=== PATIENT | female | born 1990 | race African-American/Black ===

== ENCOUNTER 2017-02-04 03:43 | Emergency (ER) | payer SELFPAY ==
[2017-02-04] MEDS ORDERED: HYDROCODONE/ACETAMINOPHEN 5-325 MG 6 TAB/DSPK PO PRN (05:30)
[2017-02-04] MEDS ORDERED: ONDANSETRON 4 MG TAB.RAPDIS PO ONE ×2 (05:30→07:06)
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
[2017-02-04] MEDS ORDERED: ACETAMINOPHEN 325 MG TABLET PO ONE (07:13)
[2017-02-04 09:42] VITALS: BP 124/78
== END 2017-02-04 09:40 | disposition home or self-care (01) ==
LOC: ER 03:43
DX: S16.1XXA Strain of muscle, fascia and tendon at neck level, initial encounter (principal); V03.00XA Pedestrian on foot injured in collision with car, pick-up truck or van in nontraffic accident, initial encounter; Y92.488 Other paved roadways as the place of occurrence of the external cause; R51 Headache; M54.2 Cervicalgia; R11.10 Vomiting, unspecified; R03.0 Elevated blood-pressure reading, without diagnosis of hypertension
CPT/HCPCS: 99284; 72050; 70450; L0120; S0119

== ENCOUNTER 2017-04-20 17:24 | Emergency (ER) | payer BC ==
[2017-04-20 17:30] VITALS: BP 119/73
[2017-04-20] MEDS ORDERED: EPINEPHRINE INJ/PF 1 MG/1 ML AMPULE IM ONE (18:33)
--- NOTE | 2017-04-20 18:39 | ER Document Report ---
ED Allergic Reaction - General Chief Complaint: Lip Swelling Stated Complaint: LIP SWELLING Time Seen by Provider: 04/20/17 18:33 Notes: Patient was at work yesterday when she began to develop hives all over her body and her lips began to swell. She took 50 mg of Benadryl at home last night. Her symptoms continued today and she went to a urgent care where she received an injection of Solu-Medrol 125 mg IM and Benadryl 50 mg IM. She was then referred here for further evaluation and care. She says that she is now doing better and the swelling in her hips have started to go down at her itching is reduced. Patient has never had any problems with allergic reactions previously. Knows of nothing in her environment or diet that should be causing her to have an allergic reaction. No new foods. No new medications. Patient does take Latuda and sertraline for depression and propranolol for anxiety, but she has been on these medications for a considerable time without any problems. Her only known allergy is to Septra. Patient has no problems swallowing. Has no problem with her airway. TRAVEL OUTSIDE OF THE [place] IN LAST 30 DAYS: No - Related Data Allergies/Adverse Reactions: sulfamethoxazole [From Septra] Adverse Reaction (Verified 04/20/17 17:29) trimethoprim [From Septra] Adverse Reaction (Verified 04/20/17 17:29) Past Medical History - Social History Smoking Status: Unknown if Ever Smoked Family History: None, Reviewed & Not Pertinent Patient has suicidal ideation: No Patient has homicidal ideation: No Pulmonary Medical History: Denies: Hx Asthma Psychiatric Medical History: Reports: Hx Anxiety, Hx Bipolar Disorder, Hx Depression, Hx Post Traumatic Stress Disorder - Immunizations Immunizations up to date: Yes Hx Diphtheria, Pertussis, Tetanus Vaccination: Yes Review of Systems - Review of Systems Notes: REVIEW OF SYSTEMS: CONSTITUTIONAL : Denies fever. EENT: Denies eye, ear, nose or mouth or throat pain or other symptoms. No difficulty breathing or swallowing. CARDIOVASCULAR: Denies chest pain. RESPIRATORY: Denies cough, chest congestion, or shortness of breath. No wheezes. GASTROINTESTINAL: Denies abdominal pain or nausea, vomiting, or diarrhea. GENITOURINARY: Denies difficulty or painful urinating, urinary frequency, blood in urine. MUSCULOSKELETAL: Denies back or neck pain. Denies joint pain or swelling. SKIN: Has a diffuse hives throughout most of her torso. NEUROLOGICAL: Denies LOC or altered mental status. Denies headache. Denies sensory loss or motor deficits. ALL OTHER SYSTEMS REVIEWED AND NEGATIVE. Physical Exam - Vital signs Vitals: Temp Pulse Resp BP Pulse Ox 98.5 F 59 L 20 119/73 98 04/20/17 17:29 04/20/17 17:29 04/20/17 17:29 04/20/17 17:29 04/20/17 17:29 Interpretation: Normal - Notes Notes: PHYSICAL EXAMINATION: GENERAL: Well-appearing, in no acute distress. HEAD: Atraumatic, normocephalic. EYES: Pupils equal round and reactive to light, extraocular movements intact. No excessive tearing and no swelling of either of the eyes. ENT: oropharynx clear without exudates. Moist mucous membranes. Slight swelling of the lower lip. NECK: Normal range of motion, supple. LUNGS: Breath sounds clear and equal bilaterally. Wheezes heard. HEART: Regular rate and rhythm without murmurs. ABDOMEN: Soft, nontender. No guarding or rebound. BACK: No tenderness throughout entire back. EXTREMITIES: Normal range of motion without pain. NEUROLOGICAL: Normal speech, normal gait. Normal sensory, motor, and reflex exams. Awake, alert, and oriented x3. Cranial nerves normal. PSYCH: Normal mood, normal affect. SKIN: Warm, dry. Diffuse hives over the patient's chest and abdomen and back especially. Course - Re-evaluation Re-evalutation: 04/21/17 01:06 Patient's symptoms are already beginning to improve. I think she is safe to go home. I am providing her with 5 days of 60 mg a day of prednisone and she is going to take as needed Benadryl at home. - Vital Signs Vital signs: Temp Pulse Resp BP Pulse Ox 98.5 F 59 L 20 119/73 98 04/20/17 17:29 04/20/17 17:29 04/20/17 17:29 04/20/17 17:29 04/20/17 17:29 Discharge - Discharge Clinical Impression: Allergic reaction Qualifiers: Encounter type: initial encounter Qualified Code(s): T78.40XA - Allergy, unspecified, initial encounter Condition: Stable Disposition: HOME, SELF-CARE Additional Instructions: ACUTE ALLERGIC REACTION: Your symptoms are due to an allergic reaction. Allergy can cause hives, swelling of the hands, feet, and face, hoarseness, and difficulty swallowing or breathing. It may be due to exposure to medication, animal dander, foods, infection, or insect bites. Medication is a common cause, even when prior use of this same medication caused no problems. Acute treatment may include adrenalin and antihistamines. Usually, the specific allergic agent can't be identified unless repeated episodes occur. Home treatment includes the following: (1) Stop any suspicious medications. This will be discussed with you. (2) Oral antihistamines for the next four to five days. Example, diphenhydramine (Benadryl) every four hours. (3) You may also use cimetidine (Tagamet), ranitidine (Zantac), or famotidine ( Pepcid) every four hours if diphenhydramine is not controlling itching and hives. (4) Avoid aspirin until the hives completely disappear. (5) Avoid hot baths or showers until the hives are completely gone. Call the doctor if faintness, difficulty swallowing, tightness in the chest , or wheezing occurs. EPINEPHRINE: An injection of epinephrine (also called adrenalin) is used to treat allergic reactions, asthma, and some other medical conditions. It is a stimulant medication that consticts blood vessels, relaxes smooth muscles such as in the bronchioles of the lung, elevates blood pressure, and increases heart rate. It can temporarily make you feel very nervous and shakey, but it's affects last only a short time, about 15 to 30 minutes at most. STEROID MEDICATION INJECTION: At the urgent care, you were given an injection of medicine of the cortisone/steroid class. This medication is used to control inflammation or allergy. It is often continued as a pill for a short period of time, until the acute process subsides. There are usually no side effects from short-term use of cortisone-like medications. Some persons feel an increased sense of well-being and are not sleepy at bedtime. Long-term use of cortisone medications is best avoided, unless required for a severe condition. If your condition does not remit, or relapses after the course of corticosteroid medication, you should consult your physician. STEROID MEDICATION: You have been given a medicine of the cortisone/steroid class. This medication is used to control inflammation or allergy. It is usually only given for a short period of time, until the acute process subsides. There are usually no side effects from short-term use of cortisone-like medications. Some persons feel an increased sense of well-being and are not sleepy at bedtime. Long-term use of cortisone medications is best avoided, unless required for a severe condition. If your condition does not remit, or relapses after the course of corticosteroid medication, you should consult your physician. ANTIHISTAMINES: An antihistamine has been given and/or prescribed to control your symptoms. Antihistamines are used for many reasons, including itching, watering eyes, runny nose, allergic swelling, hives, and insect stings. Antihistamines may cause drowsiness, especially with the first dose. Do not operate machinery or drive while under the effects of the medication. Other common side effects include dry mouth and eyes. In older persons, antihistamines can occasionally cause urinary retention, constipation, and trouble focusing the eyes. Do not combine the medication with alcohol, or with any other medication without talking to your doctor. USE OF DIPHENHYDRAMINE: The use of diphenhydramine (Benadryl) has been recommended to control allergic symptoms. The 25 mg strength is available over- the-counter, as well as the elixir. This antihistamine is used for many symptoms. It's useful for itching, watering eyes and nose, allergic swelling, hives, and insect stings. The medication can be repeated four times daily. Age 25 mg pill adult 1-2 tabs Antihistamines may cause drowsiness, especially with the first dose. Do not operate machinery or drive while under the effects of the medication. Do not combine the medication with alcohol, or with any other medication without talking to your doctor. FOLLOW-UP CARE: If you have been referred to a physician for follow-up care, call the physician s office for an appointment as you were instructed or within the next two days. If you experience worsening or a significant change in your symptoms, notify the physician immediately or return to the Emergency Department at any time for re-evaluation. Return if you have worsening symptoms, especially swelling of your eyes, inside of your mouth, difficulty breathing or swallowing. Prescriptions: Prednisone [Deltasone 20 mg Tablet] 3 tab PO DAILY 5 Days Forms: Return to Work
== END 2017-04-20 18:50 | disposition home or self-care (01) ==
LOC: ER 17:24
DX: L50.0 Allergic urticaria (principal); R22.0 Localized swelling, mass and lump, head; F31.9 Bipolar disorder, unspecified; F41.9 Anxiety disorder, unspecified; Z79.899 Other long term (current) drug therapy; Z88.1 Allergy status to other antibiotic agents
CPT/HCPCS: 99283; 96372; J0171